=== PATIENT | female | born 1990 | race Asian ===

== ENCOUNTER 2016-05-30 12:00 | Emergency (ER) | payer OTHER ==
[2016-05-30] MEDS ORDERED: ONDANSETRON DISINTEGRATING 4 MG TAB PO ONE (12:17)
[2016-05-30] MEDS ORDERED: MECLIZINE HCL 25 MG TAB PO ONE (13:04)
--- NOTE | 2016-05-30 13:09 | EDPHY ---
H & P Smoking Status: Never smoked Time Seen by Provider: 05/30/16 12:35 HPI/ROS: CHIEF COMPLAINT: Head injury, dizziness, headache HISTORY OF PRESENT ILLNESS: 25-year-old female presents to the emergency department by private vehicle complaining of diffuse headache and feeling dizzy after hitting her head 2 nights ago. Patient states that she rolled out of bed and hit her head on the ground. She does not think that she lost consciousness. She has had continued headache continued feelings of feeling dizzy and nauseous. The dizziness is especially when she tries to move around. She denies neck or back pain. Denies chest pain or difficulty breathing. Denies abdominal pain. Denies paresthesias in her upper lower extremities. No previous head injuries in the past. Last menstrual period was 1 week ago and she denies . REVIEW OF SYSTEMS: Constitutional: Dizziness as above. No fever, no chills. Eyes: No double or blurry vision. ENT: No sore throat. Respiratory: No cough, no shortness of breath. Cardiac: No chest pain. Gastrointestinal: Nausea. No abdominal pain, vomiting or diarrhea. Genitourinary: No dysuria. Musculoskeletal: No neck or back pain. Skin: No rashes. Neurological: Headache as above (Regla Rick) Past Medical/Surgical History: Negative (Regla Rick) Social History: Single (Regla Rick) Physical Exam: General Appearance: Alert, no distress. No visible signs of trauma to her head. She is mentating normally and answering questions appropriately. She has sunglasses on. There is a small palpable hematoma noted to the posterior aspect of the scalp above the occiput. No evidence of depressed skull fracture. No abrasion or puncture wound. Eyes: Pupils equal and round. Extraocular motions are all intact. No nystagmus. ENT: Mouth: Mucous membranes moist. No hemotympanum. Respiratory: No wheezing, rhonchi, or rales, lungs are clear to auscultation. Cardiovascular: Regular rate and rhythm. Gastrointestinal: Abdomen is soft and nontender, no masses, no rebound or guarding, bowel sounds normal. Neurological: Alert and oriented x 3, cranial nerves II through XII grossly intact Skin: Warm and dry, no rashes. Musculoskeletal: Nontender to palpate along the cervical, thoracic or lumbar spine. Neck is supple. Extremities: Full range of motion and no peripheral edema. Psychiatric: Patient is oriented X 3, there is no agitation. (Regla Rick) Constitutional: Initial Vital Signs Temperature (C) 36.6 C 05/30/16 12:02 Heart Rate 66 05/30/16 12:02 Respiratory Rate 18 05/30/16 12:02 Blood Pressure 112/77 05/30/16 12:02 O2 Sat (%) 99 05/30/16 12:02 O2 Delivery Mode Room Air Allergies/Adverse Reactions: caffeine Allergy (Verified 05/30/16 12:01) Home Medications: Medication Instructions Recorded Meclizine HCl [Meclizine HCl 25 mg 25 mg PO BID PRN #10 tab 05/30/16 (RX,OTC)] Medical Decision Making ED Course/Re-evaluation: 25-year-old female presents to the emergency department after closed head injury 2 days ago with persisting headache. Patient also feels very dizzy and nauseous. Her dizziness is worse with movement of her head or moving around in particular. Patient was given meclizine 25 mg p. o. and her dizziness completely resolved. I discussed the pros and cons of CT imaging of her brain including radiation exposure the patient agreed. CT scan was negative. Patient was given closed-head injury precautions and will return if she has any concerns. (Regla Rick) Differential Diagnosis: Head injury including but not limited to concussion, skull fracture, intraparenchymal contusion, subarachnoid, subdural and epidural hematoma. Dizziness including but not limited to peripheral and central causes of vertigo , orthostatic causes including dehydration, and blood loss. (Regla Rick) Other Provider: The patient was evaluated and managed by the physician safety assistant. I have reviewed this chart and I agree with the findings and plan of care as documented , as indicated by my signature. I am the secondary supervising physician. ( Erika Lazo) - Data Points Medications Given: Discontinued Medications Meclizine HCl (Meclizine Hcl) 25 mg PO EDNOW ONE Stop: 05/30/16 13:05 Last Admin: 05/30/16 13:09 Dose: 25 mg Ondansetron HCl (Zofran Odt) 4 mg PO EDNOW ONE Stop: 05/30/16 12:18 Last Admin: 05/30/16 12:23 Dose: 4 mg Departure - Departure Disposition: Home, Routine, Self-Care Clinical Impression: Head injury, Dizziness Condition: Good Instructions: Head Injury (ED), Dizziness (ED) Additional Instructions: Return if you develop worsening headache, vomiting, altered mental status, or if you feel worse in any way. Avoid any activity that might put you at risk for another head injury for at least 1 week. Referrals: Irene Allen, [Doctor of Osteopathy] - 2-3 days, if not improved (Primary care provider employee relations representative) Prescriptions: Meclizine HCl [Meclizine HCl 25 mg (RX,OTC)] 25 mg PO BID PRN #10 tab PRN Reason: Dizziness
[2016-05-30 14:39] VITALS: BP 108/76; PULSE 81; RESP 17; TEMP 98.1; O2SAT 96
== END 2016-05-30 14:38 | disposition home or self-care (01) ==
DX: S09.90XA Unspecified injury of head, initial encounter (principal); W22.8XXA Striking against or struck by other objects, initial encounter; Y93.89 Activity, other specified

== ENCOUNTER 2018-05-08 22:14 | Emergency (ER) | payer OTHER ==
[2018-05-08] MEDS ORDERED: NS 1,000 ML IV ONE (22:36)
[2018-05-08] MEDS ORDERED: LIDOCAINE 2% VISCOUS 15 ML UDCUP PO ONE (22:36)
[2018-05-08] MEDS ORDERED: MAG HYDROX/AL HYDROX/SIMETH 30 ML UDCUP PO ONE (22:36)
[2018-05-08] MEDS ORDERED: FAMOTIDINE 20 MG/NACL 50 ML IV ONE (22:36)
[2018-05-08] MEDS ORDERED: ONDANSETRON 4 MG/2 ML VIAL ONE (22:37)
--- NOTE | 2018-05-08 22:39 | EDPHY ---
H & P Stated Complaint: abd pain, bloating, nausea since yesterday. Denies V/urinary complaints Time Seen by Provider: 05/08/18 22:30 HPI/ROS: Chief Complaint: Abdominal pain, nausea HPI: 27-year-old woman presenting with a left upper abdominal pain which began yesterday. Patient states that the pain began about noon yesterday, then went away. Pain returned about 530 this morning while she was sleeping. Has been waxing waning all day. Does have a history of similar pain in the past but is always gone away quickly. Some nausea but no vomiting. No diarrhea or constipation. Last bowel movement was 9:00 a.m. This morning was normal. No dark tarry stools or blood in her stool. Last menstrual. Was 2 weeks ago was normal. Does not believe she is . No urinary urgency or frequency. There are no aggravating or alleviating factors. Denies any falls or any recent injuries or traumas. Pain is apparently is 7/10. ROS: 10 systems were reviewed and were negative except those elements noted in the HPI. PMH: Denies Social History: No smoking, no alcohol, no recreational drug use Family History: non-contributory Physical Exam: Gen: Awake, Alert, No Distress HEENT: Nose: no rhinorrhea Eyes: PERRLA, EOMI Mouth: Moist mucosa Neck: Supple, no JVD Chest: nontender, lungs clear to auscultation Heart: S1, S2 normal, no murmur Abd: Soft, moderate left upper quadrant tenderness without guarding, no lower abdominal tenderness. No right-sided tenderness in the upper or lower quadrants., no guarding Back: no CVA tenderness, no midline tenderness Ext: no edema, non-tender Skin: no rash Neuro: CN II-XII intact, Sensation grossly intact, Strength 5/5 in bilateral upper and lower extremities - Personal History LMP (Females 10-55): Over 28 Days Ago Current Tetanus/Diphtheria Vaccine: Unsure Current Tetanus Diphtheria and Acellular Pertussis (TDAP): Unsure - Medical/Surgical History Hx Asthma: No Hx Chronic Respiratory Disease: No Hx Diabetes: No Hx Cardiac Disease: No Hx Renal Disease: No Hx Cirrhosis: No Hx Alcoholism: No Hx HIV/AIDS: No Hx Splenectomy or Spleen Trauma: No Other PMH: DENIES - Social History Smoking Status: Never smoked Constitutional: Initial Vital Signs Temperature (C) 37.3 C 05/08/18 22:16 Heart Rate 95 05/08/18 22:16 Respiratory Rate 20 05/08/18 22:16 Blood Pressure 138/86 H 05/08/18 22:16 O2 Sat (%) 96 05/08/18 22:16 O2 Delivery Mode Room Air Allergies/Adverse Reactions: caffeine Allergy (Verified 05/08/18 22:16) Home Medications: Medication Instructions Recorded NK [No Known Home Meds] 05/08/18 Medical Decision Making ED Course/Re-evaluation: 27-year-old with symptoms consistent with gastritis versus reflux. Symptoms have improved dramatically after GI cocktail and IV Pepcid. Laboratory evaluations are completely unremarkable. A repeat exam in a soft benign abdomen. Plan will be for discharge with [id number] famotidine, follow up at [facility] for further evaluation. - Data Points Laboratory Results: Laboratory Results 05/08/18 22:30 05/08/18 22:30 05/08/18 05/08/18 05/08/18 22:30 22:30 22:30 WBC 8.42 10^3/uL 10^3/uL (3.80-9.50) RBC 4.68 10^6/uL 10^6/uL (4.18-5.33) Hgb 13.0 g/dL g/dL (12.6-16.3) Hct 39.3 % % (38.0-47.0) MCV 84.0 fL fL (81.5-99.8) MCH 27.8 pg L pg (27.9-34.1) MCHC 33.1 g/dL g/dL (32.4-36.7) RDW 13.7 % % (11.5-15.2) Plt Count 236 10^3/uL 10^3/uL (150-400) MPV 10.0 fL fL (8.7-11.7) Neut % (Auto) 58.8 % % (39.3-74.2) Lymph % (Auto) 33.4 % % (15.0-45.0) [place] % (Auto) 6.9 % % (4.5-13.0) Eos % (Auto) 0.4 % L % (0.6-7.6) Baso % (Auto) 0.4 % % (0.3-1.7) Nucleat RBC Rel Count 0.0 % % (0.0-0.2) Absolute Neuts (auto) 4.96 10^3/uL 10^3/uL (1.70-6.50) Absolute Lymphs (auto) 2.81 10^3/uL 10^3/uL (1.00-3.00) Absolute Monos (auto) 0.58 10^3/uL 10^3/uL (0.30-0.80) Absolute Eos (auto) 0.03 10^3/uL 10^3/uL (0.03-0.40) Absolute Basos (auto) 0.03 10^3/uL 10^3/uL (0.02-0.10) Absolute Nucleated RBC 0.00 10^3/uL 10^3/uL (0-0.01) Immature Gran % 0.1 % % (0.0-1.1) Immature Gran # 0.01 10^3/uL 10^3/uL (0.00-0.10) Sodium 137 mEq/L mEq/L (135-145) Potassium 3.7 mEq/L mEq/L (3.5-5.2) Chloride 105 mEq/L mEq/L (97-110) Carbon Dioxide 22 mEq/l mEq/l (22-31) Anion Gap 10 mEq/L mEq/L (6-14) BUN 6 mg/dL L mg/dL (7-23) Creatinine 0.4 mg/dL L mg/dL (0.6-1.0) Estimated GFR > 60 Glucose 86 mg/dL mg/dL (70-100) Calcium 9.2 mg/dL mg/dL (8.5-10.4) Total Bilirubin 0.5 mg/dL mg/dL (0.1-1.4) AST 20 IU/L IU/L (14-46) ALT 25 IU/L IU/L (9-52) Alkaline Phosphatase 53 IU/L IU/L (38-126) Total Protein 7.8 g/dL g/dL (6.3-8.2) Albumin 4.5 g/dL g/dL (3.5-5.0) Lipase 261 IU/L IU/L (23-300) Beta HCG, Qual NEGATIVE Medications Given: Discontinued Medications Al Hydroxide/Mg Hydroxide (Maalox Susp) 30 ml PO ONCE ONE Stop: 05/08/18 22:37 Last Admin: 05/08/18 22:42 Dose: 30 ml Sodium Chloride (Ns) 1,000 mls @ 0 mls/hr IV EDNOW ONE; Wide Open PRN Reason: Protocol Stop: 05/08/18 22:37 Last Admin: 05/08/18 22:42 Dose: 1,000 mls Famotidine/Sodium Chloride (Pepcid 20 Mg (Premix)) 50 mls @ 200 mls/hr IV EDNOW ONE Stop: 05/08/18 22:50 Last Admin: 05/08/18 22:47 Dose: 50 mls Lidocaine (Lidocaine 2% Viscous) 15 ml PO ONCE ONE Stop: 05/08/18 22:37 Last Admin: 05/08/18 22:42 Dose: 15 ml Ondansetron HCl (Zofran) 4 mg IVP EDNOW ONE Stop: 05/08/18 22:43 Last Admin: 05/08/18 22:44 Dose: 4 mg Departure - Departure Disposition: Home, Routine, Self-Care Clinical Impression: Gastritis, GERD (gastroesophageal reflux disease) Condition: Good Instructions: Diet for Stomach Ulcers and Gastritis (ED), Gastritis (ED), Gastroesophageal Reflux Disease (ED) Additional Instructions: Begin taking famotidine available [id number] daily. Follow up at [facility] in 2-3 days for further evaluation. Return to the emergency department for increasing abdominal pain, dark black bowel movements, worsening nausea vomiting, lightheadedness or fainting, or any other concerns. Referrals: ROBERTO Bustos,. [Clinic] - As per Instructions
[2018-05-08] MEDS ORDERED: ONDANSETRON 4 MG/2 ML VIAL IVP ONE (22:42)
[2018-05-08 22:51] LABS: PLATELET COUNT 236 10^3/uL (150-400)
[2018-05-08 23:41] VITALS: BP 100/55
== END 2018-05-08 23:39 | disposition home or self-care (01) ==
DX: K29.70 Gastritis, unspecified, without bleeding (principal); K21.9 Gastro-esophageal reflux disease without esophagitis
CPT/HCPCS: 96365; J2405